=== PATIENT | male | born 1995 | race Caucasian/White ===

== ENCOUNTER 2016-07-31 14:20 | Emergency (ER) | payer SELFPAY ==
[~2016-07-31] VITALS: Ht 182.9 cm; Wt 79.5 kg
[2016-07-31] MEDS ORDERED: IBUP100T54 PO (14:22)
[2016-07-31 14:54] LABS: BASOPHILS % (AUTO) 0.3 % (0.0-2.0); EOSINOPHILS % (AUTO) 1.2 % (1.0-6.0); HEMATOCRIT 49.8 % (41-53); HEMOGLOBIN 16.2 g/dL (13.5-17.5); LYMPHOCYTES # (AUTO) 1.6 K/uL (1.0-4.8); LYMPHOCYTES % (AUTO) 21.9 % (22.0-44.0); MEAN CORPUSCULAR HEMOGLOBIN 30.9 pg (26.0-34.0); MEAN CORPUSCULAR HGB CONC 32.6 G/dL (31.0-37.0); MEAN CORPUSCULAR VOLUME 95 fL (80-100); MONOCYTES # (AUTO) 0.5 K/uL (0.1-1.0); MONOCYTES % (AUTO) 6.6 % (2.0-9.0); NEUTROPHILS # (AUTO) 5.2 K/uL (1.8-7.7); PLATELET COUNT (AUTO) 181 K/uL (150-450); RED BLOOD CELL COUNT(AUTO) 5.25 MIL/uL (4.50-5.90); RED CELL DISTRIBUTION WIDTH 13.9 % (11.5-14.5); WHITE BLOOD COUNT (AUTO) 7.5 K/uL (4.5-11.0)
[2016-07-31 15:05] LABS: APPEARANCE,URINE CLOUDY (CLEAR); GLUCOSE, URINE (UA) NEGATIVE (NEGATIVE); KETONES,URINE NEGATIVE (NEGATIVE); LEUKOCYTE ESTERASE ,URINE NEGATIVE (NEGATIVE); OCCULT BLOOD,URINE NEGATIVE (NEGATIVE); PROTEIN,URINE NEGATIVE (NEGATIVE)
[2016-07-31 15:07] LABS: ADD UA MICROSCOPIC NO
[2016-07-31 15:20] LABS: ANION GAP 9 mmol/L (8-16); CALCIUM, TOTAL 8.9 mg/dL (8.8-10.5); CARBON DIOXIDE 30 mmol/L (22-29); CHLORIDE 102 mmol/L (98-107); CREATININE 1.19 mg/dL (0.60-1.30); GLOMERULAR FILTR. RATE CALC > 60 mL/min (>60); POTASSIUM 3.8 mmol/L (3.5-5.1); SODIUM SERUM 141 mmol/L (136-145); UREA NITROGEN, BLOOD 13 mg/dL (7-18)
[2016-07-31 15:27] LABS: ALANINE AMINOTRANSFERASE 27 U/L (12-78); ALBUMIN 4.3 g/dL (3.4-5.0); ASPARTATE AMINOTRANSFERASE 11 U/L (15-37); BILIRUBIN,TOTAL 0.3 mg/dL (0.1-1.0); TOTAL PROTEIN, SERUM 7.5 g/dL (6.4-8.2)
[2016-07-31] MEDS ORDERED: KETOROLAC TROMETHAMINE 30 MG/ML VIAL IVP ONE (16:00)
[2016-07-31] MEDS ORDERED: SODIUM CHLORIDE 0.9% 1,000 ML IV ONE (16:00)
[2016-07-31 17:21] VITALS: BP 118/69
== END 2016-07-31 18:01 | disposition home or self-care (01) ==
LOC: EMS 14:22
DX: R55 Syncope and collapse (principal); F12.90 Cannabis use, unspecified, uncomplicated; F17.210 Nicotine dependence, cigarettes, uncomplicated
CPT/HCPCS: 36415; 70450; 80053; 80307; 81003; 85025; 93005; 96361; 96374; 99285; J1885; J7030

== ENCOUNTER 2017-12-04 14:28 | Inpatient (IN) | payer OTHER ==
[~2017-12-04] VITALS: Ht 167.6 cm; Wt 64.6 kg
[~2017-12-04 14:28] MED LIST: IBUP100T54 PO
[2017-12-04] MEDS ORDERED: ACET-2895 PO (14:41)
[2017-12-04 15:31] LABS: BASOPHILS % (AUTO) 0.8 % (0.0-2.0); EOSINOPHILS % (AUTO) 2.2 % (1.0-6.0); HEMATOCRIT 37.8 % (41-53); HEMOGLOBIN 12.2 g/dL (13.5-17.5); LYMPHOCYTES # (AUTO) 1.7 K/uL (1.0-4.8); LYMPHOCYTES % (AUTO) 32.1 % (22.0-44.0); MEAN CORPUSCULAR HEMOGLOBIN 26.2 pg (26.0-34.0); MEAN CORPUSCULAR HGB CONC 32.1 G/dL (31.0-37.0); MEAN CORPUSCULAR VOLUME 82 fL (80-100); MONOCYTES # (AUTO) 0.5 K/uL (0.1-1.0); MONOCYTES % (AUTO) 8.7 % (2.0-9.0); NEUTROPHILS # (AUTO) 3.1 K/uL (1.8-7.7); NEUTROPHILS % (AUTO) 56.2 % (40.0-70.0); PLATELET COUNT (AUTO) 343 K/uL (150-450); RED BLOOD CELL COUNT(AUTO) 4.64 MIL/uL (4.50-5.90); RED CELL DISTRIBUTION WIDTH 18.5 % (11.5-14.5)
[2017-12-04 15:45] LABS: ANION GAP 6 mmol/L (8-16); CALCIUM, TOTAL 8.7 mg/dL (8.8-10.5); CARBON DIOXIDE 30 mmol/L (22-29); CHLORIDE 101 mmol/L (98-107); CREATININE 1.02 mg/dL (0.60-1.30); GLOMERULAR FILTR. RATE CALC > 60 mL/min (>60); GLUCOSE,RANDOM 126 mg/dL (70-110); POTASSIUM 3.7 mmol/L (3.5-5.1); SODIUM SERUM 137 mmol/L (136-145); UREA NITROGEN, BLOOD 9 mg/dL (7-18)
[2017-12-04 15:51] LABS: ALANINE AMINOTRANSFERASE 26 U/L (12-78); ALBUMIN 3.2 g/dL (3.4-5.0); ALKALINE PHOSPHATASE 249 U/L (46-116); ASPARTATE AMINOTRANSFERASE 16 U/L (15-37); BILIRUBIN,TOTAL 0.2 mg/dL (0.1-1.0)
[2017-12-04 16:49] LABS: AMPHET/METH SCREEN,URINE NEGATIVE (NEGATIVE); BARBITURATE SCREEN, URINE NEGATIVE (NEGATIVE); BENZODIAZEPINES SCREEN,URINE NEGATIVE (NEGATIVE); CANNABINOID SCREEN,URINE POSITIVE (NEGATIVE); COCAINE SCREEN,URINE NEGATIVE (NEGATIVE); METHADONE SCREEN, URINE NEGATIVE (NEGATIVE); OPIATE SCREEN,URINE NEGATIVE (NEGATIVE)
[2017-12-04 16:50] LABS: PHENCYCLIDINE SCREEN,URINE NEGATIVE (NEGATIVE)
[2017-12-04] MEDS ORDERED: ONDANSETRON HCL 4 MG/2 ML VIAL IVP PRN ×2 (17:15→22:30)
[2017-12-04] MEDS ORDERED: 0.9% SODIUM CHLORIDE 10 ML SYRINGE IVP PRN (17:15)
[2017-12-04] MEDS ORDERED: ACETAMINOPHEN 325 MG TABLET PO PRN ×2 (17:15→22:30)
[2017-12-04 19:18] VITALS: BP 118/84
[2017-12-04] MEDS ORDERED: HYDROCODONE/ACETAMINOPHEN 5-325 MG TABLET PO PRN (22:30)
[2017-12-04] MEDS ORDERED: LORazepam 2 MG/ML VIAL IVP PRN (22:30)
[2017-12-04] MEDS ORDERED: BISACODYL 10 MG RECTAL RECTAL SUPPOSITORY PR PRN (22:30)
[2017-12-04] MEDS ORDERED: ZOLPIDEM TARTRATE 5 MG TABLET PO PRN (22:30)
[2017-12-04] MEDS ORDERED: MORPHINE SULFATE 2 MG/ML SYRINGE IVP PRN (22:30)
[2017-12-04] MEDS ORDERED: MAGNESIUM HYDROXIDE SUSPENSION 30 ML UDCUP PO PRN (22:30)
[2017-12-04 23:23] VITALS: BP 132/78
[2017-12-05] MEDS: HEPARIN SODIUM,PORCINE 5,000 UNITS/ML VIAL SQ SCH ×3 (00:09→16:46)
[2017-12-05 05:04] VITALS: BP 132/88
[2017-12-05 06:22] LABS: BASOPHILS % (AUTO) 0.4 % (0.0-2.0); EOSINOPHILS % (AUTO) 2.7 % (1.0-6.0); HEMATOCRIT 39.4 % (41-53); HEMOGLOBIN 12.6 g/dL (13.5-17.5); LYMPHOCYTES # (AUTO) 2.7 K/uL (1.0-4.8); LYMPHOCYTES % (AUTO) 30.9 % (22.0-44.0); MEAN CORPUSCULAR HEMOGLOBIN 26.1 pg (26.0-34.0); MEAN CORPUSCULAR VOLUME 82 fL (80-100); MONOCYTES # (AUTO) 0.6 K/uL (0.1-1.0); MONOCYTES % (AUTO) 6.4 % (2.0-9.0); NEUTROPHILS # (AUTO) 5.2 K/uL (1.8-7.7); NEUTROPHILS % (AUTO) 59.6 % (40.0-70.0); PLATELET COUNT (AUTO) 395 K/uL (150-450); RED BLOOD CELL COUNT(AUTO) 4.83 MIL/uL (4.50-5.90); RED CELL DISTRIBUTION WIDTH 18.5 % (11.5-14.5)
[2017-12-05 06:29] LABS: ALANINE AMINOTRANSFERASE 31 U/L (12-78); ALBUMIN 3.3 g/dL (3.4-5.0); ALKALINE PHOSPHATASE 247 U/L (46-116); ANION GAP 6 mmol/L (8-16); ASPARTATE AMINOTRANSFERASE 16 U/L (15-37); BILIRUBIN,TOTAL 0.2 mg/dL (0.1-1.0); CALCIUM, TOTAL 8.9 mg/dL (8.8-10.5); CARBON DIOXIDE 30 mmol/L (22-29); CHLORIDE 103 mmol/L (98-107); CREATININE 0.91 mg/dL (0.60-1.30); GLOMERULAR FILTR. RATE CALC > 60 mL/min (>60); GLUCOSE,RANDOM 98 mg/dL (70-110); SODIUM SERUM 139 mmol/L (136-145); TOTAL PROTEIN, SERUM 7.2 g/dL (6.4-8.2); UREA NITROGEN, BLOOD 9 mg/dL (7-18)
[2017-12-05] MEDS ORDERED: DOCUSATE SODIUM 100 MG CAPSULE PO SCH (09:00)
[2017-12-05] MEDS ORDERED: PANTOPRAZOLE SODIUM 40 MG DR TABLET PO SCH (09:00)
[2017-12-05 09:11] VITALS: BP 107/64
[2017-12-05 12:39] VITALS: BP 130/85
[2017-12-05 16:16] VITALS: BP 129/75
== END 2017-12-05 18:17 | disposition home or self-care (01) | DRG 52 ==
LOC: EMS 14:29 → 6N 17:33 → 4E 12-05 07:41
PROVIDERS: ADMIT Internal Medicine; ATTEND Internal Medicine
DX: G92 Toxic encephalopathy (principal); F12.10 Cannabis abuse, uncomplicated; H91.3 Deaf nonspeaking, not elsewhere classified; F17.210 Nicotine dependence, cigarettes, uncomplicated
CPT/HCPCS: 70450; 72125; 99285; G0480; J1644

== ENCOUNTER 2018-02-22 19:37 | Emergency (ER) | payer OTHER ==
[~2018-02-22] VITALS: Ht 175.3 cm; Wt 57.7 kg
[~2018-02-22 19:37] MED LIST changes: +ACET-2895 PO; -IBUP100T54 PO
[2018-02-22 21:10] LABS: APPEARANCE,URINE TURBID (CLEAR); GLUCOSE, URINE (UA) NEGATIVE (NEGATIVE); KETONES,URINE TRACE mg/dL (NEGATIVE); LEUKOCYTE ESTERASE ,URINE NEGATIVE (NEGATIVE); NITRATE,URINE NEGATIVE (NEGATIVE); OCCULT BLOOD,URINE NEGATIVE (NEGATIVE); PH,URINE 5.5 (5.0-8.0); PROTEIN,URINE POS 1+ (NEGATIVE); UROBILINOGEN,URINE 0.2 mg/dL (<=1.0)
[2018-02-22 21:11] LABS: BILIRUBIN,URINE PRELIM. POSITIVE (NEGATIVE)
[2018-02-22 21:18] LABS: BACTERIA,URINE None Seen /HPF (None Seen); WBC,URINE 0-2 /HPF (0-5)
[2018-02-22 21:19] LABS: HYALINE CASTS, URINE 0-2 /LPF (None Seen); MUCUS,URINE Few LPF (None Seen); SQUAMOUS EPITHELIAL CELL,UR Rare /LPF (None Seen)
[2018-02-22 23:12] VITALS: BP 136/77
== END 2018-02-22 23:12 | disposition home or self-care (01) ==
LOC: EMS 19:39
DX: N48.89 Other specified disorders of penis (principal); N50.89 Other specified disorders of the male genital organs; F17.210 Nicotine dependence, cigarettes, uncomplicated; F12.90 Cannabis use, unspecified, uncomplicated
CPT/HCPCS: 76870

== ENCOUNTER 2018-04-09 14:49 | Inpatient (IN) | payer MEDICAID, OTHER ==
[~2018-04-09] VITALS: Ht 172.7 cm; Wt 63.3 kg
[2018-04-09 15:18] LABS: BASOPHILS % (AUTO) 0.8 % (0.0-2.0); EOSINOPHILS % (AUTO) 1.9 % (1.0-6.0); HEMATOCRIT 42.5 % (41-53); HEMOGLOBIN 13.8 g/dL (13.5-17.5); LYMPHOCYTES # (AUTO) 1.7 K/uL (1.0-4.8); LYMPHOCYTES % (AUTO) 22.4 % (22.0-44.0); MEAN CORPUSCULAR HEMOGLOBIN 28.9 pg (26.0-34.0); MEAN CORPUSCULAR HGB CONC 32.5 G/dL (31.0-37.0); MEAN CORPUSCULAR VOLUME 89 fL (80-100); MONOCYTES # (AUTO) 0.5 K/uL (0.1-1.0); MONOCYTES % (AUTO) 7.3 % (2.0-9.0); NEUTROPHILS % (AUTO) 67.6 % (40.0-70.0); PLATELET COUNT (AUTO) 291 K/uL (150-450); RED BLOOD CELL COUNT(AUTO) 4.78 MIL/uL (4.50-5.90); RED CELL DISTRIBUTION WIDTH 17.8 % (11.5-14.5)
[2018-04-09 15:46] LABS: ALANINE AMINOTRANSFERASE 128 U/L (12-78); ALKALINE PHOSPHATASE 284 U/L (46-116); ANION GAP 4 mmol/L (8-16); ASPARTATE AMINOTRANSFERASE 71 U/L (15-37); BILIRUBIN,TOTAL 0.2 mg/dL (0.1-1.0); CALCIUM, TOTAL 8.8 mg/dL (8.8-10.5); CARBON DIOXIDE 30 mmol/L (22-29); CHLORIDE 104 mmol/L (98-107); CREATININE 0.95 mg/dL (0.60-1.30); GLOMERULAR FILTR. RATE CALC > 60 mL/min (>60); GLUCOSE,RANDOM 96 mg/dL (70-110); POTASSIUM 4.4 mmol/L (3.5-5.1); SODIUM SERUM 138 mmol/L (136-145); TOTAL PROTEIN, SERUM 7.1 g/dL (6.4-8.2); UREA NITROGEN, BLOOD 17 mg/dL (7-18)
[2018-04-09] MEDS ORDERED: LORazepam 1 MG TABLET PO ONE (17:15)
[2018-04-09] MEDS ORDERED: ZOLPIDEM TARTRATE 10 MG TABLET PO PRN (17:30)
[2018-04-09 22:59] VITALS: BP 139/82
[2018-04-10 00:35] VITALS: BP 115/69
[2018-04-10] MEDS ORDERED: LOPERAMIDE HCL 2 MG CAPSULE PO PRN (07:15)
[2018-04-10] MEDS ORDERED: PETROLATUM,WHITE 71 GM JELLY TP PRN (07:15)
[2018-04-10] MEDS ORDERED: IBUPROFEN 400 MG TABLET PO PRN (07:15)
[2018-04-10] MEDS ORDERED: GuaiFENesin/D-METHORPHAN [SUGAR-FREE] 200-20MG/10 ML SYRUP UDCUP PO PRN (07:15)
[2018-04-10] MEDS ORDERED: DOCUSATE SODIUM 100 MG CAPSULE PO PRN (07:15)
[2018-04-10] MEDS ORDERED: MAG HYDROX/AL HYDROX/SIMETH ES 30 ML SUSPENSION UDCUP PO PRN (07:15)
[2018-04-10] MEDS ORDERED: ONDANSETRON HCL 4 MG TABLET PO PRN (07:15)
[2018-04-10] MEDS ORDERED: NICOTINE 14 MG/24 HOUR PATCH TD PRN (07:15)
[2018-04-10] MEDS ORDERED: ACETAMINOPHEN 325 MG TABLET PO PRN (07:15)
[2018-04-10] MEDS ORDERED: ALBUTEROL SULFATE HFA 90 MCG/PUFF 8 GM INHALER IH PRN (07:15)
[2018-04-10] MEDS ORDERED: CloNIDine HCL 0.1 MG TABLET PO PRN (07:15)
[2018-04-10] MEDS ORDERED: MAGNESIUM HYDROXIDE SUSPENSION 30 ML UDCUP PO PRN (07:15)
[2018-04-10] MEDS: BACITRACIN 28.4 GM OINTMENT TP SCH ×2 (09:10→17:00)
[2018-04-10] MEDS: HALOPERIDOL 5 MG TABLET PO PRN (09:42)
[2018-04-10] MEDS: LORazepam 2 MG TABLET PO PRN (09:42)
[2018-04-10 09:47] LABS: FREE T4 (FREE THYROXINE) 0.78 ng/dL (0.76-1.46); THYROID STIMULATING HORMONE 1.18 uIU/mL (0.36-3.74)
[2018-04-10 16:33] VITALS: BP 137/91
[2018-04-11 04:33] VITALS: BP 124/87
[2018-04-11 08:42] VITALS: BP 109/71
[2018-04-11 08:50] LABS: BASOPHILS % (AUTO) 0.4 % (0.0-2.0); EOSINOPHILS % (AUTO) 0.7 % (1.0-6.0); HEMOGLOBIN 15.9 g/dL (13.5-17.5); LYMPHOCYTES # (AUTO) 1.8 K/uL (1.0-4.8); LYMPHOCYTES % (AUTO) 15.6 % (22.0-44.0); MEAN CORPUSCULAR HEMOGLOBIN 28.8 pg (26.0-34.0); MEAN CORPUSCULAR HGB CONC 32.3 G/dL (31.0-37.0); MEAN CORPUSCULAR VOLUME 89 fL (80-100); MONOCYTES # (AUTO) 0.5 K/uL (0.1-1.0); MONOCYTES % (AUTO) 4.7 % (2.0-9.0); NEUTROPHILS # (AUTO) 8.9 K/uL (1.8-7.7); NEUTROPHILS % (AUTO) 78.6 % (40.0-70.0); PLATELET COUNT (AUTO) 321 K/uL (150-450); RED BLOOD CELL COUNT(AUTO) 5.51 MIL/uL (4.50-5.90); RED CELL DISTRIBUTION WIDTH 17.4 % (11.5-14.5)
[2018-04-11 09:03] LABS: ALANINE AMINOTRANSFERASE 95 U/L (12-78); ALBUMIN 3.2 g/dL (3.4-5.0); ALKALINE PHOSPHATASE 297 U/L (46-116); ANION GAP 6 mmol/L (8-16); ASPARTATE AMINOTRANSFERASE 30 U/L (15-37); BILIRUBIN,TOTAL 0.3 mg/dL (0.1-1.0); CALCIUM, TOTAL 9.2 mg/dL (8.8-10.5); CARBON DIOXIDE 30 mmol/L (22-29); CHLORIDE 102 mmol/L (98-107); CREATININE 0.72 mg/dL (0.60-1.30); GLOMERULAR FILTR. RATE CALC > 60 mL/min (>60); GLUCOSE,RANDOM 96 mg/dL (70-110); HEMOGLOBIN A1C 5.5 % (4.5-6.2); POTASSIUM 4.2 mmol/L (3.5-5.1); SODIUM SERUM 138 mmol/L (136-145); TOTAL PROTEIN, SERUM 7.8 g/dL (6.4-8.2); UREA NITROGEN, BLOOD 11 mg/dL (7-18)
[2018-04-11] MEDS: BACITRACIN 28.4 GM OINTMENT TP SCH ×2 (09:14→17:15)
[2018-04-11] MEDS: HALOPERIDOL 5 MG TABLET PO PRN ×2 (09:51→17:15)
[2018-04-11] MEDS: LORazepam 2 MG TABLET PO PRN ×2 (09:51→17:14)
[2018-04-11 10:05] VITALS: BP 116/80
[2018-04-11 16:40] VITALS: BP 135/69
[2018-04-11] MEDS: RisperiDONE 0.5 MG TABLET PO SCH (17:15)
[2018-04-12 00:51] VITALS: BP 111/67
[2018-04-12 08:29] VITALS: BP 124/84
[2018-04-12] MEDS: LORazepam 2 MG TABLET PO PRN (08:35)
[2018-04-12] MEDS: RisperiDONE 0.5 MG TABLET PO SCH ×2 (08:35→17:06)
[2018-04-12] MEDS: BACITRACIN 28.4 GM OINTMENT TP SCH ×2 (08:37→17:08)
[2018-04-12] MEDS ORDERED: RISP.5 PO (12:31)
[2018-04-12 16:09] VITALS: BP 126/85
== END 2018-04-12 18:20 | disposition home or self-care (01) | DRG 750 ==
LOC: EMS 14:50 → B2S 21:43
PROVIDERS: ADMIT Psychiatry & Neurology Psychiatry; ATTEND Psychiatry & Neurology Psychiatry
DX: F20.9 Schizophrenia, unspecified (principal); R45.851 Suicidal ideations; R74.0 Nonspecific elevation of levels of transaminase and lactic acid dehydrogenase [LDH]; H91.3 Deaf nonspeaking, not elsewhere classified; F17.210 Nicotine dependence, cigarettes, uncomplicated; F12.90 Cannabis use, unspecified, uncomplicated; F15.90 Other stimulant use, unspecified, uncomplicated; Z71.6 Tobacco abuse counseling; Z79.899 Other long term (current) drug therapy
CPT/HCPCS: 83036; 84439; 84443; G0480

== ENCOUNTER 2018-10-18 15:53 | Emergency (ER) | payer MEDICAID, OTHER ==
[~2018-10-18] VITALS: Ht 177.8 cm; Wt 68.2 kg
[~2018-10-18 15:53] MED LIST changes: -ACET-2895 PO; +RISP.5 PO
[2018-10-18 18:25] VITALS: BP 116/63
== END 2018-10-18 18:33 | disposition home or self-care (01) ==
LOC: EMS 15:54
DX: Z63.8 Other specified problems related to primary support group (principal); F17.210 Nicotine dependence, cigarettes, uncomplicated; F12.90 Cannabis use, unspecified, uncomplicated; F19.90 Other psychoactive substance use, unspecified, uncomplicated

== ENCOUNTER 2018-12-07 00:56 | Inpatient (IN) | payer MEDICAID, OTHER ==
[~2018-12-07] VITALS: Ht 175.3 cm; Wt 65.0 kg
[2018-12-07 02:45] LABS: BASOPHILS % (AUTO) 0.6 % (0.0-2.0); EOSINOPHILS % (AUTO) 0.7 % (1.0-6.0); HEMATOCRIT 42.9 % (41-53); HEMOGLOBIN 14.2 g/dL (13.5-17.5); LYMPHOCYTES # (AUTO) 1.8 K/uL (1.0-4.8); LYMPHOCYTES % (AUTO) 23.6 % (22.0-44.0); MEAN CORPUSCULAR HEMOGLOBIN 31.3 pg (26.0-34.0); MEAN CORPUSCULAR HGB CONC 33.2 G/dL (31.0-37.0); MEAN CORPUSCULAR VOLUME 94 fL (80-100); MONOCYTES # (AUTO) 0.6 K/uL (0.1-1.0); MONOCYTES % (AUTO) 7.8 % (2.0-9.0); NEUTROPHILS # (AUTO) 5.2 K/uL (1.8-7.7); NEUTROPHILS % (AUTO) 67.3 % (40.0-70.0); PLATELET COUNT (AUTO) 263 K/uL (150-450); RED BLOOD CELL COUNT(AUTO) 4.55 MIL/uL (4.50-5.90); RED CELL DISTRIBUTION WIDTH 14.6 % (11.5-14.5)
[2018-12-07 02:55] LABS: ANION GAP 10 mmol/L (8-16); CALCIUM, TOTAL 9.6 mg/dL (8.8-10.5); CARBON DIOXIDE 26 mmol/L (22-29); CHLORIDE 104 mmol/L (98-107); GLOMERULAR FILTR. RATE CALC > 60 mL/min (>60); GLUCOSE,RANDOM 93 mg/dL (70-110); SODIUM SERUM 140 mmol/L (136-145); UREA NITROGEN, BLOOD 8 mg/dL (7-18)
[2018-12-07 03:01] LABS: ALANINE AMINOTRANSFERASE 50 U/L (12-78); ALBUMIN 4.2 g/dL (3.4-5.0); ALKALINE PHOSPHATASE 149 U/L (46-116); ASPARTATE AMINOTRANSFERASE 26 U/L (15-37); BILIRUBIN,TOTAL 0.4 mg/dL (0.1-1.0); TOTAL PROTEIN, SERUM 7.5 g/dL (6.4-8.2)
[2018-12-07] MEDS ORDERED: ZOLPIDEM TARTRATE 10 MG TABLET PO PRN (06:00)
[2018-12-07] MEDS ORDERED: INFLUENZA VIRUS VACCINE QVS 2019-20 (3YR+)/PF 60 MCG/0.5 ML SYRINGE IM ONE (12:30)
[2018-12-07 14:23] VITALS: BP 137/78
[2018-12-07 16:10] VITALS: BP 138/94
[2018-12-07] MEDS ORDERED: PNEUMOCOCCAL VACCINE POLYVALENT 0.5 ML VIAL [PPSV23] IM ONE (16:15)
[2018-12-07] MEDS: LORazepam 2 MG TABLET PO PRN (16:39)
[2018-12-08 07:31] VITALS: BP 126/82
[2018-12-08 08:19] VITALS: BP 126/71
[2018-12-08] MEDS: NICOTINE 21 MG/24 HOUR PATCH TD SCH (08:40)
[2018-12-08] MEDS ORDERED: ALBUTEROL SULFATE HFA 90 MCG/PUFF 8 GM INHALER IH PRN (09:15)
[2018-12-08] MEDS ORDERED: OMEPRAZOLE 20 MG CAPSULE PO PRN (09:15)
[2018-12-08] MEDS ORDERED: PETROLATUM,WHITE 28 GM JELLY TP PRN (09:15)
[2018-12-08] MEDS ORDERED: LOPERAMIDE HCL 2 MG CAPSULE PO PRN (09:15)
[2018-12-08] MEDS ORDERED: MAG HYDROX/AL HYDROX/SIMETH ES 30 ML SUSPENSION UDCUP PO PRN (09:15)
[2018-12-08] MEDS ORDERED: ONDANSETRON HCL 4 MG TABLET PO PRN (09:15)
[2018-12-08] MEDS ORDERED: CloNIDine HCL 0.1 MG TABLET PO PRN (09:15)
[2018-12-08] MEDS ORDERED: BENZOCAINE/MENTHOL LOZENGE MM PRN (09:15)
[2018-12-08] MEDS ORDERED: MAGNESIUM HYDROXIDE SUSPENSION 30 ML UDCUP PO PRN (09:15)
[2018-12-08] MEDS ORDERED: BACITRACIN 28.4 GM OINTMENT TP PRN (09:15)
[2018-12-08] MEDS ORDERED: IBUPROFEN 600 MG TABLET PO PRN (09:15)
[2018-12-08] MEDS ORDERED: DOCUSATE SODIUM 100 MG CAPSULE PO PRN (09:15)
[2018-12-08] MEDS ORDERED: ACETAMINOPHEN 325 MG TABLET PO PRN (09:15)
[2018-12-08] MEDS: LORazepam 2 MG TABLET PO PRN (10:23)
[2018-12-09 06:30] VITALS: BP 120/81
[2018-12-09 07:14] VITALS: BP 124/78
[2018-12-09 08:07] LABS: CHOL/HDL RATIO 3.3 (4.2-7.3)
[2018-12-09 08:31] VITALS: BP 108/63
[2018-12-09] MEDS: NICOTINE 21 MG/24 HOUR PATCH TD SCH (08:43)
[2018-12-09] MEDS: LORazepam 2 MG TABLET PO PRN (09:51)
[2018-12-09 16:00] VITALS: BP 133/83
[2018-12-09] MEDS: RisperiDONE 0.5 MG TABLET PO SCH (16:19)
[2018-12-10 00:02] VITALS: BP 104/63
[2018-12-10] MEDS: RisperiDONE 0.5 MG TABLET PO SCH ×2 (08:25→16:27)
[2018-12-10] MEDS: NICOTINE 21 MG/24 HOUR PATCH TD SCH (08:26)
[2018-12-10] MEDS: LORazepam 2 MG TABLET PO PRN (08:26)
[2018-12-10 08:29] VITALS: BP 140/75
[2018-12-10 16:00] VITALS: BP 112/93
[2018-12-11 01:30] VITALS: BP 122/83
[2018-12-11 08:02] LABS: APPEARANCE,URINE CLEAR (CLEAR); BILIRUBIN,URINE NEGATIVE (NEGATIVE); GLUCOSE, URINE (UA) NEGATIVE (NEGATIVE); KETONES,URINE NEGATIVE (NEGATIVE); LEUKOCYTE ESTERASE ,URINE NEGATIVE (NEGATIVE); NITRATE,URINE NEGATIVE (NEGATIVE); OCCULT BLOOD,URINE NEGATIVE (NEGATIVE); PROTEIN,URINE NEGATIVE (NEGATIVE); UROBILINOGEN,URINE 0.2 mg/dL (<=1.0)
[2018-12-11 08:10] LABS: AMPHET/METH SCREEN,URINE NEGATIVE (NEGATIVE); BARBITURATE SCREEN, URINE NEGATIVE (NEGATIVE); BENZODIAZEPINES SCREEN,URINE NEGATIVE (NEGATIVE); CANNABINOID SCREEN,URINE POSITIVE (NEGATIVE); COCAINE SCREEN,URINE NEGATIVE (NEGATIVE); METHADONE SCREEN, URINE NEGATIVE (NEGATIVE); OPIATE SCREEN,URINE NEGATIVE (NEGATIVE)
[2018-12-11 08:11] LABS: PHENCYCLIDINE SCREEN,URINE NEGATIVE (NEGATIVE)
[2018-12-11 08:27] VITALS: BP 134/80
[2018-12-11] MEDS: NICOTINE 21 MG/24 HOUR PATCH TD SCH (09:22)
[2018-12-11] MEDS: RisperiDONE 0.5 MG TABLET PO SCH ×2 (09:22→19:30)
[2018-12-11] MEDS ORDERED: LORazepam 2 MG/ML VIAL IM ONE (15:30)
[2018-12-11] MEDS ORDERED: HALOPERIDOL LACTATE 5 MG/ML VIAL IM ONE (15:30)
[2018-12-11] MEDS ORDERED: DiphenhydrAMINE HCL 50 MG/ML VIAL IM ONE (15:30)
[2018-12-11 16:11] VITALS: BP 123/71
[2018-12-12] MEDS: RisperiDONE 0.5 MG TABLET PO SCH ×2 (09:49→17:00)
[2018-12-12] MEDS: NICOTINE 21 MG/24 HOUR PATCH TD SCH (10:05)
[2018-12-12] MEDS: HALOPERIDOL 5 MG TABLET PO PRN ×2 (10:52→16:38)
[2018-12-12 11:09] VITALS: BP 108/65
[2018-12-12 16:13] VITALS: BP 113/73
[2018-12-12] MEDS: LORazepam 2 MG TABLET PO PRN (16:38)
[2018-12-13 06:55] VITALS: BP 116/74
[2018-12-13 08:14] VITALS: BP 134/81
[2018-12-13] MEDS: NICOTINE 21 MG/24 HOUR PATCH TD SCH (09:12)
[2018-12-13] MEDS: RisperiDONE 0.5 MG TABLET PO SCH (09:12)
== END 2018-12-13 13:30 | disposition home or self-care (01) | DRG 750 ==
LOC: EMS 00:57 → B2S 09:36 → B3A 12-11 17:30
PROVIDERS: ADMIT Psychiatry & Neurology Psychiatry; ATTEND Psychiatry & Neurology Psychiatry
DX: F20.0 Paranoid schizophrenia (principal); F12.10 Cannabis abuse, uncomplicated; F15.10 Other stimulant abuse, uncomplicated; F17.210 Nicotine dependence, cigarettes, uncomplicated; G47.00 Insomnia, unspecified; K59.00 Constipation, unspecified; F41.9 Anxiety disorder, unspecified; Z23 Encounter for immunization; Z79.899 Other long term (current) drug therapy; Z71.6 Tobacco abuse counseling; Z71.51 Drug abuse counseling and surveillance of drug abuser
CPT/HCPCS: 80307; 90686; G0480; J1200; J1630; J2060

== ENCOUNTER 2019-09-13 17:58 | Inpatient (IN) | payer MEDICAID, OTHER ==
[~2019-09-13] VITALS: Ht 177.8 cm; Wt 56.0 kg
[~2019-09-13 17:58] MED LIST changes: -RISP.5 PO; +RISP0.5T20 PO
[2019-09-13 19:04] LABS: BASOPHILS % (AUTO) 1.1 % (0.0-2.0); EOSINOPHILS % (AUTO) 0.7 % (1.0-6.0); HEMATOCRIT 42.7 % (41-53); HEMOGLOBIN 14.5 g/dL (13.5-17.5); LYMPHOCYTES # (AUTO) 2.3 K/uL (1.0-4.8); MEAN CORPUSCULAR HEMOGLOBIN 31.1 pg (26.0-34.0); MEAN CORPUSCULAR HGB CONC 33.9 G/dL (31.0-37.0); MEAN CORPUSCULAR VOLUME 92 fL (80-100); MONOCYTES # (AUTO) 0.8 K/uL (0.1-1.0); MONOCYTES % (AUTO) 12.4 % (2.0-9.0); NEUTROPHILS # (AUTO) 3.5 K/uL (1.8-7.7); NEUTROPHILS % (AUTO) 51.8 % (40.0-70.0); PLATELET COUNT (AUTO) 338 K/uL (150-450); RED BLOOD CELL COUNT(AUTO) 4.66 MIL/uL (4.50-5.90); RED CELL DISTRIBUTION WIDTH 13.9 % (11.5-14.5)
[2019-09-13 19:18] LABS: ANION GAP 16 mmol/L (8-16); CALCIUM, TOTAL 9.5 mg/dL (8.8-10.5); CARBON DIOXIDE 21 mmol/L (22-29); CHLORIDE 101 mmol/L (98-107); CREATININE 1.45 mg/dL (0.60-1.30); GLOMERULAR FILTR. RATE CALC 59 mL/min (>60); GLUCOSE,RANDOM 94 mg/dL (70-110); POTASSIUM 3.3 mmol/L (3.5-5.1); SODIUM SERUM 138 mmol/L (136-145); UREA NITROGEN, BLOOD 42 mg/dL (7-18)
[2019-09-13 19:24] LABS: ALANINE AMINOTRANSFERASE 73 U/L (12-78); ALBUMIN 4.7 g/dL (3.4-5.0); ALKALINE PHOSPHATASE 138 U/L (46-116); ASPARTATE AMINOTRANSFERASE 45 U/L (15-37); BILIRUBIN,TOTAL 0.7 mg/dL (0.1-1.0); TOTAL PROTEIN, SERUM 8.4 g/dL (6.4-8.2)
[2019-09-13] MEDS ORDERED: SODIUM CHLORIDE 0.9% 1,000 ML IV ONE (19:45)
[2019-09-13] MEDS ORDERED: LORazepam 2 MG/ML VIAL IM ONE (19:45)
[2019-09-13] MEDS ORDERED: POTASSIUM CHLORIDE 20 MEQ ER TABLET PO ONE (19:45)
[2019-09-13] MEDS ORDERED: ZOLPIDEM TARTRATE 10 MG TABLET PO PRN (21:30)
[2019-09-13] MEDS ORDERED: HALOPERIDOL 5 MG TABLET PO PRN (21:30)
[2019-09-13] MEDS ORDERED: LORazepam 2 MG TABLET PO PRN (21:30)
[2019-09-14 01:02] VITALS: BP 109/68
[2019-09-14] MEDS ORDERED: ACETAMINOPHEN 325 MG TABLET PO PRN (07:00)
[2019-09-14] MEDS ORDERED: PETROLATUM,WHITE 28 GM JELLY TP PRN (07:00)
[2019-09-14] MEDS ORDERED: ALBUTEROL SULFATE HFA 90 MCG/PUFF 8 GM INHALER IH PRN (07:00)
[2019-09-14] MEDS ORDERED: CloNIDine HCL 0.1 MG TABLET PO PRN (07:00)
[2019-09-14] MEDS ORDERED: NICOTINE 14 MG/24 HOUR PATCH TD PRN (07:00)
[2019-09-14] MEDS ORDERED: IBUPROFEN 400 MG TABLET PO PRN (07:00)
[2019-09-14] MEDS ORDERED: MAG HYDROX/AL HYDROX/SIMETH ES 30 ML SUSPENSION UDCUP PO PRN (07:00)
[2019-09-14] MEDS ORDERED: LOPERAMIDE HCL 2 MG CAPSULE PO PRN (07:00)
[2019-09-14] MEDS ORDERED: GuaiFENesin/D-METHORPHAN [SUGAR-FREE] 200-20MG/10 ML SYRUP UDCUP PO PRN (07:00)
[2019-09-14] MEDS ORDERED: DOCUSATE SODIUM 100 MG CAPSULE PO PRN (07:00)
[2019-09-14] MEDS ORDERED: ONDANSETRON HCL 4 MG TABLET PO PRN (07:00)
[2019-09-14] MEDS ORDERED: MAGNESIUM HYDROXIDE SUSPENSION 30 ML UDCUP PO PRN (07:00)
[2019-09-14 08:05] LABS: HEMOGLOBIN A1C 5.2 % (3.8-5.6)
[2019-09-14 08:32] LABS: CHOL/HDL RATIO 2.9 (4.2-7.3); FREE T4 (FREE THYROXINE) 1.03 ng/dL (0.76-1.46); POTASSIUM 3.5 mmol/L (3.5-5.1); THYROID STIMULATING HORMONE 2.16 uIU/mL (0.36-3.74)
[2019-09-14] MEDS: RisperiDONE 0.5 MG TABLET PO SCH (16:35)
[2019-09-14 17:20] VITALS: BP 106/88
[2019-09-15 05:47] VITALS: BP 110/68
[2019-09-15] MEDS: RisperiDONE 0.5 MG TABLET PO SCH ×2 (08:57→17:01)
[2019-09-15 16:14] VITALS: BP 111/64
[2019-09-16 00:41] VITALS: BP 110/65
[2019-09-16 08:44] VITALS: BP 114/67
[2019-09-16] MEDS: RisperiDONE 0.5 MG TABLET PO SCH (08:48)
[2019-09-16] MEDS ORDERED: FOLIC ACID 1 MG TABLET PO SCH (09:00)
[2019-09-16] MEDS ORDERED: MULTIVITAMINS WITH MINERALS, THERAPEUTIC TABLET PO SCH (09:00)
[2019-09-16] MEDS ORDERED: THIAMINE 100 MG TABLET PO SCH (09:00)
[2019-09-16] MEDS ORDERED: RISP0.5T61 PO (13:32)
== END 2019-09-16 15:00 | disposition home or self-care (01) | DRG 885 ==
LOC: EMS 18:02 → B3A 22:08
PROVIDERS: ADMIT Psychiatry & Neurology Psychiatry; ATTEND Psychiatry & Neurology Psychiatry
DX: F20.9 Schizophrenia, unspecified (principal); N17.9 Acute kidney failure, unspecified; R45.851 Suicidal ideations; E87.6 Hypokalemia; R74.0 Nonspecific elevation of levels of transaminase and lactic acid dehydrogenase [LDH]; F10.10 Alcohol abuse, uncomplicated; G40.909 Epilepsy, unspecified, not intractable, without status epilepticus; Z59.0 Homelessness; Z87.891 Personal history of nicotine dependence
CPT/HCPCS: 83036; 84132; 84439; 84443; G0480; J2060; J7030

== ENCOUNTER 2019-10-04 09:56 | Emergency (ER) | payer MEDICAID, OTHER ==
[2019-10-04 11:43] LABS: BASOPHILS % (AUTO) 1.2 % (0.0-2.0); EOSINOPHILS % (AUTO) 0.4 % (1.0-6.0); HEMATOCRIT 42.4 % (41-53); HEMOGLOBIN 14.3 g/dL (13.5-17.5); LYMPHOCYTES # (AUTO) 1.9 K/uL (1.0-4.8); LYMPHOCYTES % (AUTO) 21.6 % (22.0-44.0); MEAN CORPUSCULAR HEMOGLOBIN 31.6 pg (26.0-34.0); MEAN CORPUSCULAR HGB CONC 33.7 G/dL (31.0-37.0); MEAN CORPUSCULAR VOLUME 94 fL (80-100); MONOCYTES # (AUTO) 0.8 K/uL (0.1-1.0); MONOCYTES % (AUTO) 9.3 % (2.0-9.0); NEUTROPHILS # (AUTO) 5.8 K/uL (1.8-7.7); NEUTROPHILS % (AUTO) 67.5 % (40.0-70.0); PLATELET COUNT (AUTO) 291 K/uL (150-450); RED BLOOD CELL COUNT(AUTO) 4.52 MIL/uL (4.50-5.90); RED CELL DISTRIBUTION WIDTH 14.2 % (11.5-14.5)
[2019-10-04 12:13] LABS: ANION GAP 9 mmol/L (8-16); CALCIUM, TOTAL 9.7 mg/dL (8.8-10.5); CARBON DIOXIDE 31 mmol/L (22-29); CHLORIDE 108 mmol/L (98-107); CREATININE 1.02 mg/dL (0.60-1.30); GLOMERULAR FILTR. RATE CALC > 60 mL/min (>60); GLUCOSE,RANDOM 109 mg/dL (70-110); POTASSIUM 4.3 mmol/L (3.5-5.1); SODIUM SERUM 148 mmol/L (136-145); UREA NITROGEN, BLOOD 26 mg/dL (7-18)
[2019-10-04 12:18] LABS: ALANINE AMINOTRANSFERASE 85 U/L (12-78); ALBUMIN 4.5 g/dL (3.4-5.0); ALKALINE PHOSPHATASE 121 U/L (46-116); ASPARTATE AMINOTRANSFERASE 43 U/L (15-37); BILIRUBIN,TOTAL 0.4 mg/dL (0.1-1.0); TOTAL PROTEIN, SERUM 8.3 g/dL (6.4-8.2)
== END 2019-10-04 12:00 | disposition left against medical advice (07) ==
LOC: EMS 09:58
DX: R45.851 Suicidal ideations (principal); Z53.21 Procedure and treatment not carried out due to patient leaving prior to being seen by health care provider
CPT/HCPCS: 36415; 80053; 85025; G0480

== ENCOUNTER 2019-10-18 14:07 | Inpatient (IN) | payer MEDICAID, OTHER ==
[~2019-10-18] VITALS: Ht 172.7 cm; Wt 61.7 kg
[2019-10-18 15:39] LABS: AMPHET/METH SCREEN,URINE POSITIVE (NEGATIVE); BARBITURATE SCREEN, URINE NEGATIVE (NEGATIVE); BENZODIAZEPINES SCREEN,URINE NEGATIVE (NEGATIVE); CANNABINOID SCREEN,URINE POSITIVE (NEGATIVE); COCAINE SCREEN,URINE NEGATIVE (NEGATIVE); METHADONE SCREEN, URINE NEGATIVE (NEGATIVE); OPIATE SCREEN,URINE NEGATIVE (NEGATIVE)
[2019-10-18 15:40] LABS: PHENCYCLIDINE SCREEN,URINE NEGATIVE (NEGATIVE)
[2019-10-18 15:54] LABS: BASOPHILS % (AUTO) 1.2 % (0.0-2.0); EOSINOPHILS % (AUTO) 3.7 % (1.0-6.0); HEMATOCRIT 41.8 % (41-53); HEMOGLOBIN 14.5 g/dL (13.5-17.5); LYMPHOCYTES % (AUTO) 40.8 % (22.0-44.0); MEAN CORPUSCULAR HEMOGLOBIN 32.3 pg (26.0-34.0); MEAN CORPUSCULAR HGB CONC 34.6 G/dL (31.0-37.0); MEAN CORPUSCULAR VOLUME 93 fL (80-100); MONOCYTES # (AUTO) 0.7 K/uL (0.1-1.0); MONOCYTES % (AUTO) 13.2 % (2.0-9.0); NEUTROPHILS # (AUTO) 2.1 K/uL (1.8-7.7); NEUTROPHILS % (AUTO) 41.1 % (40.0-70.0); PLATELET COUNT (AUTO) 263 K/uL (150-450); RED BLOOD CELL COUNT(AUTO) 4.48 MIL/uL (4.50-5.90); RED CELL DISTRIBUTION WIDTH 13.9 % (11.5-14.5)
[2019-10-18 16:04] LABS: ANION GAP 5 mmol/L (8-16); CARBON DIOXIDE 29 mmol/L (22-29); CHLORIDE 101 mmol/L (98-107); CREATININE 1.31 mg/dL (0.60-1.30); GLOMERULAR FILTR. RATE CALC > 60 mL/min (>60); GLUCOSE,RANDOM 121 mg/dL (70-110); POTASSIUM 3.3 mmol/L (3.5-5.1); SODIUM SERUM 135 mmol/L (136-145); UREA NITROGEN, BLOOD 22 mg/dL (7-18)
[2019-10-18 16:09] LABS: ALANINE AMINOTRANSFERASE 58 U/L (12-78); ALKALINE PHOSPHATASE 105 U/L (46-116); ASPARTATE AMINOTRANSFERASE 42 U/L (15-37); BILIRUBIN,TOTAL 0.4 mg/dL (0.1-1.0); TOTAL PROTEIN, SERUM 7.4 g/dL (6.4-8.2)
[2019-10-18] MEDS ORDERED: POTASSIUM CHLORIDE 20 MEQ ER TABLET PO ONE (16:30)
[2019-10-18] MEDS ORDERED: ZOLPIDEM TARTRATE 10 MG TABLET PO PRN (18:00)
[2019-10-18] MEDS ORDERED: HALOPERIDOL 5 MG TABLET PO PRN (18:00)
[2019-10-18] MEDS: LORazepam 2 MG TABLET PO PRN (20:27)
[2019-10-18] MEDS ORDERED: ACETAMINOPHEN 325 MG TABLET PO ONE (20:30)
[2019-10-18 22:26] VITALS: BP 107/58
[2019-10-19 06:24] VITALS: BP 102/66
[2019-10-19] MEDS ORDERED: CloNIDine HCL 0.1 MG TABLET PO PRN (07:00)
[2019-10-19] MEDS ORDERED: PETROLATUM,WHITE 28 GM JELLY TP PRN (07:00)
[2019-10-19] MEDS ORDERED: IBUPROFEN 600 MG TABLET PO PRN (07:00)
[2019-10-19] MEDS ORDERED: ACETAMINOPHEN 325 MG TABLET PO PRN (07:00)
[2019-10-19] MEDS ORDERED: DOCUSATE SODIUM 100 MG CAPSULE PO PRN (07:00)
[2019-10-19] MEDS ORDERED: LOPERAMIDE HCL 2 MG CAPSULE PO PRN (07:00)
[2019-10-19] MEDS ORDERED: ONDANSETRON HCL 4 MG TABLET PO PRN (07:00)
[2019-10-19] MEDS ORDERED: OMEPRAZOLE 20 MG CAPSULE PO PRN (07:00)
[2019-10-19] MEDS ORDERED: BENZOCAINE/MENTHOL LOZENGE MM PRN (07:00)
[2019-10-19] MEDS ORDERED: MAG HYDROX/AL HYDROX/SIMETH ES 30 ML SUSPENSION UDCUP PO PRN (07:00)
[2019-10-19] MEDS ORDERED: MAGNESIUM HYDROXIDE SUSPENSION 30 ML UDCUP PO PRN (07:00)
[2019-10-19] MEDS ORDERED: ALBUTEROL SULFATE HFA 90 MCG/PUFF 8 GM INHALER IH PRN (07:00)
[2019-10-19] MEDS ORDERED: BACITRACIN 28.4 GM OINTMENT TP PRN (07:00)
[2019-10-19] MEDS: NICOTINE 14 MG/24 HOUR PATCH TD SCH (08:31)
[2019-10-19 08:45] LABS: ANION GAP 4 mmol/L (8-16); CALCIUM, TOTAL 8.8 mg/dL (8.8-10.5); CARBON DIOXIDE 31 mmol/L (22-29); CHLORIDE 104 mmol/L (98-107); CHOL/HDL RATIO 2.2 (4.2-7.3); CHOLESTEROL 148 mg/dL (131-200); CREATININE 1.09 mg/dL (0.60-1.30); GLOMERULAR FILTR. RATE CALC > 60 mL/min (>60); GLUCOSE,RANDOM 129 mg/dL (70-110); HDL CHOLESTEROL 67 mg/dL (40-60); LDL CHOL (CALC.) 57 mg/dL (0-130); POTASSIUM 3.9 mmol/L (3.5-5.1); SODIUM SERUM 139 mmol/L (136-145); TRIGLYCERIDES 119 mg/dL (15-150); UREA NITROGEN, BLOOD 18 mg/dL (7-18)
[2019-10-19] MEDS: LORazepam 2 MG TABLET PO PRN (11:01)
[2019-10-19] MEDS: RisperiDONE 1 MG TABLET PO SCH ×2 (14:13→16:28)
[2019-10-19 16:11] VITALS: BP 122/61
[2019-10-20 06:14] VITALS: BP 120/71
[2019-10-20] MEDS: RisperiDONE 1 MG TABLET PO SCH ×2 (08:13→16:06)
[2019-10-20] MEDS: NICOTINE 14 MG/24 HOUR PATCH TD SCH (08:14)
[2019-10-20 08:23] VITALS: BP 122/76
[2019-10-20] MEDS: LORazepam 2 MG TABLET PO PRN (16:07)
[2019-10-20 16:15] VITALS: BP 126/66
[2019-10-21 08:06] VITALS: BP 125/82
[2019-10-21] MEDS: RisperiDONE 1 MG TABLET PO SCH ×2 (09:08→16:32)
[2019-10-21] MEDS: NICOTINE 14 MG/24 HOUR PATCH TD SCH (09:35)
[2019-10-21] MEDS ORDERED: RISP1TAB89 PO (10:34)
[2019-10-21 16:15] VITALS: BP 120/74
== END 2019-10-22 07:30 | disposition home or self-care (01) | DRG 885 ==
LOC: EMS 14:08 → B3A 17:56 → UNDOADMIN 18:49 → B3A 18:49
PROVIDERS: ADMIT Psychiatry & Neurology Psychiatry; ATTEND Psychiatry & Neurology Psychiatry
DX: F33.2 Major depressive disorder, recurrent severe without psychotic features (principal); N17.9 Acute kidney failure, unspecified; R45.851 Suicidal ideations; F15.10 Other stimulant abuse, uncomplicated; F20.9 Schizophrenia, unspecified; H91.3 Deaf nonspeaking, not elsewhere classified; F17.210 Nicotine dependence, cigarettes, uncomplicated; G40.909 Epilepsy, unspecified, not intractable, without status epilepticus; R74.8 Abnormal levels of other serum enzymes; G47.00 Insomnia, unspecified; K59.00 Constipation, unspecified; F41.9 Anxiety disorder, unspecified; F10.10 Alcohol abuse, uncomplicated; F12.10 Cannabis abuse, uncomplicated; F14.90 Cocaine use, unspecified, uncomplicated; Z91.5 Personal history of self-harm; Z79.899 Other long term (current) drug therapy; Z71.51 Drug abuse counseling and surveillance of drug abuser; Z71.6 Tobacco abuse counseling
CPT/HCPCS: G0480

== ENCOUNTER 2019-11-08 07:24 | Inpatient (IN) | payer MEDICAID, OTHER ==
[~2019-11-08] VITALS: Ht 167.6 cm; Wt 59.0 kg
[~2019-11-08 07:24] MED LIST changes: -RISP0.5T20 PO; +RISP1TAB89 PO
[2019-11-08 07:51] LABS: EOSINOPHILS % (AUTO) 1.4 % (1.0-6.0); HEMATOCRIT 40.6 % (41-53); HEMOGLOBIN 13.6 g/dL (13.5-17.5); LYMPHOCYTES # (AUTO) 1.3 K/uL (1.0-4.8); MEAN CORPUSCULAR HEMOGLOBIN 31.5 pg (26.0-34.0); MEAN CORPUSCULAR HGB CONC 33.5 G/dL (31.0-37.0); MEAN CORPUSCULAR VOLUME 94 fL (80-100); MONOCYTES # (AUTO) 0.5 K/uL (0.1-1.0); MONOCYTES % (AUTO) 9.4 % (2.0-9.0); NEUTROPHILS % (AUTO) 61.2 % (40.0-70.0); PLATELET COUNT (AUTO) 247 K/uL (150-450); RED BLOOD CELL COUNT(AUTO) 4.32 MIL/uL (4.50-5.90); RED CELL DISTRIBUTION WIDTH 13.9 % (11.5-14.5)
[2019-11-08 08:00] LABS: ANION GAP 3 mmol/L (8-16); CALCIUM, TOTAL 8.7 mg/dL (8.8-10.5); CARBON DIOXIDE 30 mmol/L (22-29); CHLORIDE 106 mmol/L (98-107); CREATININE 1.19 mg/dL (0.60-1.30); GLOMERULAR FILTR. RATE CALC > 60 mL/min (>60); GLUCOSE,RANDOM 119 mg/dL (70-110); POTASSIUM 3.5 mmol/L (3.5-5.1); SODIUM SERUM 139 mmol/L (136-145); UREA NITROGEN, BLOOD 11 mg/dL (7-18)
[2019-11-08 08:06] LABS: ALANINE AMINOTRANSFERASE 80 U/L (12-78); ALBUMIN 3.8 g/dL (3.4-5.0); ALKALINE PHOSPHATASE 98 U/L (46-116); ASPARTATE AMINOTRANSFERASE 49 U/L (15-37); BILIRUBIN,TOTAL 0.6 mg/dL (0.1-1.0); TOTAL PROTEIN, SERUM 6.8 g/dL (6.4-8.2)
[2019-11-08] MEDS ORDERED: LORazepam 2 MG/ML VIAL ONE (08:13)
[2019-11-08] MEDS ORDERED: HALOPERIDOL LACTATE 5 MG/ML VIAL ONE (08:13)
[2019-11-08] MEDS ORDERED: DiphenhydrAMINE HCL 50 MG/ML VIAL ONE (08:13)
[2019-11-08] MEDS ORDERED: HALOPERIDOL LACTATE 5 MG/ML VIAL IM ONE (08:15)
[2019-11-08] MEDS ORDERED: DiphenhydrAMINE HCL 50 MG/ML VIAL IM ONE (08:15)
[2019-11-08] MEDS ORDERED: LORazepam 2 MG/ML VIAL IM ONE (08:15)
[2019-11-08] MEDS ORDERED: RisperiDONE 1 MG TABLET PO ONE (08:30)
[2019-11-08] MEDS ORDERED: LORazepam 1 MG TABLET PO ONE (08:30)
[2019-11-08] MEDS ORDERED: HALOPERIDOL 5 MG TABLET PO PRN (09:45)
[2019-11-08] MEDS ORDERED: ZOLPIDEM TARTRATE 10 MG TABLET PO PRN (09:45)
[2019-11-08] MEDS ORDERED: LORazepam 2 MG TABLET PO PRN (09:45)
[2019-11-08 11:08] VITALS: BP 110/65
[2019-11-08 16:02] VITALS: BP 118/74
[2019-11-08] MEDS: RisperiDONE 1 MG TABLET PO SCH (17:00)
[2019-11-09 05:20] VITALS: BP 114/68
[2019-11-09] MEDS ORDERED: ACETAMINOPHEN 325 MG TABLET PO PRN (07:00)
[2019-11-09] MEDS ORDERED: CloNIDine HCL 0.1 MG TABLET PO PRN (07:00)
[2019-11-09] MEDS ORDERED: MAG HYDROX/AL HYDROX/SIMETH ES 30 ML SUSPENSION UDCUP PO PRN (07:00)
[2019-11-09] MEDS ORDERED: IBUPROFEN 600 MG TABLET PO PRN (07:00)
[2019-11-09] MEDS ORDERED: BACITRACIN 28.4 GM OINTMENT TP PRN (07:00)
[2019-11-09] MEDS ORDERED: LOPERAMIDE HCL 2 MG CAPSULE PO PRN (07:00)
[2019-11-09] MEDS ORDERED: MAGNESIUM HYDROXIDE SUSPENSION 30 ML UDCUP PO PRN (07:00)
[2019-11-09] MEDS ORDERED: BENZOCAINE/MENTHOL LOZENGE PO PRN (07:00)
[2019-11-09] MEDS ORDERED: PETROLATUM,WHITE 28 GM JELLY TP PRN (07:00)
[2019-11-09] MEDS ORDERED: ONDANSETRON HCL 4 MG TABLET PO PRN (07:00)
[2019-11-09] MEDS ORDERED: OMEPRAZOLE 20 MG CAPSULE PO PRN (07:00)
[2019-11-09] MEDS ORDERED: DOCUSATE SODIUM 100 MG CAPSULE PO PRN (07:00)
[2019-11-09] MEDS ORDERED: ALBUTEROL SULFATE HFA 90 MCG/PUFF 8 GM INHALER IH PRN (07:00)
[2019-11-09] MEDS: RisperiDONE 1 MG TABLET PO SCH ×2 (08:36→16:48)
[2019-11-09] MEDS: FLUoxetine HCL 20 MG CAPSULE PO SCH (13:05)
[2019-11-09 14:22] VITALS: BP 125/76
[2019-11-09 16:31] VITALS: BP 117/69
[2019-11-10 06:06] VITALS: BP 116/73
[2019-11-10] MEDS: RisperiDONE 1 MG TABLET PO SCH ×2 (08:16→16:53)
[2019-11-10] MEDS: FLUoxetine HCL 20 MG CAPSULE PO SCH (08:16)
[2019-11-10 08:26] VITALS: BP 126/78
[2019-11-10 16:04] VITALS: BP 111/66
[2019-11-11 05:56] VITALS: BP 124/70
[2019-11-11] MEDS: FLUoxetine HCL 20 MG CAPSULE PO SCH (08:15)
[2019-11-11] MEDS: RisperiDONE 1 MG TABLET PO SCH (08:15)
[2019-11-11 08:40] VITALS: BP 131/78
[2019-11-11] MEDS ORDERED: FLUO-191 PO (14:21)
== END 2019-11-11 15:34 | disposition home or self-care (01) | DRG 750 ==
LOC: EMS 07:27 → B3A 09:30
PROVIDERS: ADMIT Psychiatry & Neurology Psychiatry; ATTEND Psychiatry & Neurology Psychiatry
DX: F25.1 Schizoaffective disorder, depressive type (principal); F17.210 Nicotine dependence, cigarettes, uncomplicated; F14.90 Cocaine use, unspecified, uncomplicated; K59.00 Constipation, unspecified; G47.00 Insomnia, unspecified; F41.9 Anxiety disorder, unspecified; F12.90 Cannabis use, unspecified, uncomplicated; G40.909 Epilepsy, unspecified, not intractable, without status epilepticus
CPT/HCPCS: 87081; G0480; J1200; J1630; J2060

== ENCOUNTER 2020-01-06 19:05 | Inpatient (IN) | payer MEDICAID, OTHER ==
[~2020-01-06] VITALS: Ht 170.2 cm; Wt 60.1 kg
[~2020-01-06 19:05] MED LIST changes: +FLUO-191 PO
[2020-01-06 21:45] LABS: COVID AG,FIA SOURCE NASOPHARYNGEAL
[2020-01-06 21:48] LABS: BASOPHILS % (AUTO) 0.7 % (0.0-2.0); EOSINOPHILS % (AUTO) 1.7 % (1.0-6.0); HEMATOCRIT 41.3 % (41-53); HEMOGLOBIN 14.4 g/dL (13.5-17.5); LYMPHOCYTES # (AUTO) 2.2 K/uL (1.0-4.8); LYMPHOCYTES % (AUTO) 27.6 % (22.0-44.0); MEAN CORPUSCULAR HEMOGLOBIN 32.3 pg (26.0-34.0); MEAN CORPUSCULAR VOLUME 92 fL (80-100); MONOCYTES # (AUTO) 0.7 K/uL (0.1-1.0); MONOCYTES % (AUTO) 9.1 % (2.0-9.0); NEUTROPHILS # (AUTO) 4.9 K/uL (1.8-7.7); NEUTROPHILS % (AUTO) 60.9 % (40.0-70.0); PLATELET COUNT (AUTO) 286 K/uL (150-450); RED BLOOD CELL COUNT(AUTO) 4.47 MIL/uL (4.50-5.90); RED CELL DISTRIBUTION WIDTH 13.6 % (11.5-14.5)
[2020-01-06] MEDS ORDERED: ZOLPIDEM TARTRATE 10 MG TABLET PO PRN (22:00)
[2020-01-06] MEDS ORDERED: HALOPERIDOL 5 MG TABLET PO PRN (22:00)
[2020-01-06] MEDS ORDERED: LORazepam 2 MG TABLET PO PRN (22:00)
[2020-01-06 22:03] LABS: ALANINE AMINOTRANSFERASE 107 U/L (12-78); ALKALINE PHOSPHATASE 112 U/L (46-116); ANION GAP 8 mmol/L (8-16); ASPARTATE AMINOTRANSFERASE 67 U/L (15-37); BILIRUBIN,TOTAL 0.6 mg/dL (0.1-1.0); CALCIUM, TOTAL 9.1 mg/dL (8.8-10.5); CARBON DIOXIDE 31 mmol/L (22-29); CHLORIDE 103 mmol/L (98-107); CREATININE 1.21 mg/dL (0.60-1.30); GLOMERULAR FILTR. RATE CALC > 60 mL/min (>60); GLUCOSE,RANDOM 138 mg/dL (70-110); SODIUM SERUM 142 mmol/L (136-145); TOTAL PROTEIN, SERUM 6.7 g/dL (6.4-8.2); UREA NITROGEN, BLOOD 23 mg/dL (7-18)
[2020-01-06] MEDS ORDERED: POTASSIUM CHLORIDE 20 MEQ ER TABLET PO ONE (23:15)
[2020-01-07 01:44] VITALS: BP 122/80
[2020-01-07] MEDS ORDERED: INFLUENZA VIRUS VACCINE QVS 2020-21 (6MO+)/PF 60 MCG/0.5 ML SYRINGE IM ONE (05:30)
[2020-01-07 07:03] LABS: CHOL/HDL RATIO 2.5 (4.2-7.3)
[2020-01-07] MEDS ORDERED: CloNIDine HCL 0.1 MG TABLET PO PRN (08:00)
[2020-01-07] MEDS ORDERED: MAG HYDROX/AL HYDROX/SIMETH ES 30 ML SUSPENSION UDCUP PO PRN (08:00)
[2020-01-07] MEDS ORDERED: GuaiFENesin/D-METHORPHAN [SUGAR-FREE] 200-20MG/10 ML SYRUP UDCUP PO PRN (08:00)
[2020-01-07] MEDS ORDERED: LOPERAMIDE HCL 2 MG CAPSULE PO PRN (08:00)
[2020-01-07] MEDS ORDERED: ONDANSETRON HCL 4 MG TABLET PO PRN (08:00)
[2020-01-07] MEDS ORDERED: NICOTINE 14 MG/24 HOUR PATCH TD PRN (08:00)
[2020-01-07] MEDS ORDERED: PETROLATUM,WHITE 28 GM JELLY TP PRN (08:00)
[2020-01-07] MEDS ORDERED: DOCUSATE SODIUM 100 MG CAPSULE PO PRN (08:00)
[2020-01-07] MEDS ORDERED: ALBUTEROL SULFATE HFA 90 MCG/PUFF 8 GM INHALER IH PRN (08:00)
[2020-01-07] MEDS ORDERED: ACETAMINOPHEN 325 MG TABLET PO PRN (08:00)
[2020-01-07] MEDS ORDERED: MAGNESIUM HYDROXIDE SUSPENSION 30 ML UDCUP PO PRN (08:00)
[2020-01-07] MEDS ORDERED: IBUPROFEN 400 MG TABLET PO PRN (08:00)
[2020-01-07 08:49] LABS: POTASSIUM 4.1 mmol/L (3.5-5.1)
[2020-01-07 09:56] VITALS: BP 134/94
[2020-01-07 16:00] VITALS: BP 115/60
[2020-01-07] MEDS: RisperiDONE 1 MG TABLET PO SCH (16:43)
[2020-01-08] MEDS: RisperiDONE 1 MG TABLET PO SCH ×2 (09:07→16:42)
[2020-01-08] MEDS: FLUoxetine HCL 20 MG CAPSULE PO SCH (09:07)
[2020-01-08 09:37] VITALS: BP 132/80
[2020-01-08 16:00] VITALS: BP 117/67
[2020-01-09] MEDS: FLUoxetine HCL 20 MG CAPSULE PO SCH (09:02)
[2020-01-09] MEDS: RisperiDONE 1 MG TABLET PO SCH (09:02)
== END 2020-01-09 16:30 | disposition home or self-care (01) | DRG 750 ==
LOC: EMS 19:05 → 3EI 21:54
PROVIDERS: ADMIT Psychiatry & Neurology Psychiatry; ATTEND Psychiatry & Neurology Psychiatry
DX: F25.1 Schizoaffective disorder, depressive type (principal); E87.6 Hypokalemia; F94.0 Selective mutism; H91.3 Deaf nonspeaking, not elsewhere classified; R45.850 Homicidal ideations; F17.210 Nicotine dependence, cigarettes, uncomplicated; Z20.828 Contact with and (suspected) exposure to other viral communicable diseases; F19.10 Other psychoactive substance abuse, uncomplicated; F99 Mental disorder, not otherwise specified; R73.9 Hyperglycemia, unspecified; Z79.899 Other long term (current) drug therapy; Z23 Encounter for immunization
CPT/HCPCS: 84132; 87426; G0480

== ENCOUNTER 2020-01-17 14:03 | Inpatient (IN) | payer MEDICAID ==
[~2020-01-17] VITALS: Ht 170.2 cm; Wt 64.1 kg
[2020-01-17] MEDS ORDERED: LORazepam 2 MG TABLET PO PRN (18:00)
[2020-01-17] MEDS ORDERED: HALOPERIDOL 5 MG TABLET PO PRN (18:00)
[2020-01-17] MEDS ORDERED: ZOLPIDEM TARTRATE 10 MG TABLET PO PRN (18:00)
[2020-01-17] MEDS ORDERED: INFLUENZA VIRUS VACCINE QVS 2020-21 (6MO+)/PF 60 MCG/0.5 ML SYRINGE IM ONE (18:45)
[2020-01-17 18:53] VITALS: BP 132/90
[2020-01-18 06:42] VITALS: BP 138/81
[2020-01-18] MEDS ORDERED: ALBUTEROL SULFATE HFA 90 MCG/PUFF 8 GM INHALER IH PRN (06:45)
[2020-01-18] MEDS ORDERED: DOCUSATE SODIUM 100 MG CAPSULE PO PRN (06:45)
[2020-01-18] MEDS ORDERED: CloNIDine HCL 0.1 MG TABLET PO PRN (06:45)
[2020-01-18] MEDS ORDERED: MAGNESIUM HYDROXIDE SUSPENSION 30 ML UDCUP PO PRN (06:45)
[2020-01-18] MEDS ORDERED: NICOTINE 14 MG/24 HOUR PATCH TD PRN (06:45)
[2020-01-18] MEDS ORDERED: PETROLATUM,WHITE 28 GM JELLY TP PRN (06:45)
[2020-01-18] MEDS ORDERED: ONDANSETRON HCL 4 MG TABLET PO PRN (06:45)
[2020-01-18] MEDS ORDERED: GuaiFENesin/D-METHORPHAN [SUGAR-FREE] 200-20MG/10 ML SYRUP UDCUP PO PRN (06:45)
[2020-01-18] MEDS ORDERED: LOPERAMIDE HCL 2 MG CAPSULE PO PRN (06:45)
[2020-01-18] MEDS ORDERED: MAG HYDROX/AL HYDROX/SIMETH ES 30 ML SUSPENSION UDCUP PO PRN (06:45)
[2020-01-18 07:38] LABS: BASOPHILS % (AUTO) 0.5 % (0.0-2.0); EOSINOPHILS % (AUTO) 2.7 % (1.0-6.0); HEMATOCRIT 45.1 % (41-53); LYMPHOCYTES # (AUTO) 1.4 K/uL (1.0-4.8); MEAN CORPUSCULAR HEMOGLOBIN 31.5 pg (26.0-34.0); MEAN CORPUSCULAR HGB CONC 33.3 G/dL (31.0-37.0); MEAN CORPUSCULAR VOLUME 95 fL (80-100); MONOCYTES # (AUTO) 0.3 K/uL (0.1-1.0); NEUTROPHILS # (AUTO) 3.1 K/uL (1.8-7.7); NEUTROPHILS % (AUTO) 61.8 % (40.0-70.0); PLATELET COUNT (AUTO) 232 K/uL (150-450); RED BLOOD CELL COUNT(AUTO) 4.77 MIL/uL (4.50-5.90); RED CELL DISTRIBUTION WIDTH 13.9 % (11.5-14.5)
[2020-01-18 07:56] LABS: ALANINE AMINOTRANSFERASE 41 U/L (12-78); ALBUMIN 3.5 g/dL (3.4-5.0); ALKALINE PHOSPHATASE 87 U/L (46-116); ANION GAP 6 mmol/L (8-16); ASPARTATE AMINOTRANSFERASE 19 U/L (15-37); BILIRUBIN,TOTAL 0.2 mg/dL (0.1-1.0); CALCIUM, TOTAL 8.8 mg/dL (8.8-10.5); CARBON DIOXIDE 26 mmol/L (22-29); CHLORIDE 106 mmol/L (98-107); CHOL/HDL RATIO 2.5 (4.2-7.3); CHOLESTEROL 157 mg/dL (131-200); CREATININE 0.74 mg/dL (0.60-1.30); FREE T4 (FREE THYROXINE) 0.94 ng/dL (0.76-1.46); GLOMERULAR FILTR. RATE CALC > 60 mL/min (>60); GLUCOSE,RANDOM 110 mg/dL (70-110); HDL CHOLESTEROL 64 mg/dL (40-60); LDL CHOL (CALC.) 79 mg/dL (0-130); POTASSIUM 4.1 mmol/L (3.5-5.1); SODIUM SERUM 138 mmol/L (136-145); THYROID STIMULATING HORMONE 1.46 uIU/mL (0.36-3.74); TOTAL PROTEIN, SERUM 6.2 g/dL (6.4-8.2); TRIGLYCERIDES 72 mg/dL (15-150); UREA NITROGEN, BLOOD 16 mg/dL (7-18)
[2020-01-18 09:15] VITALS: BP 122/80
[2020-01-18] MEDS: SULFAMETHOX/TRIMETH DS 800-160 MG/TABLET PO SCH (16:08)
[2020-01-18] MEDS: RisperiDONE 2 MG TABLET PO SCH (16:08)
[2020-01-18] MEDS: CEPHALEXIN MONOHYDRATE 500 MG CAPSULE PO SCH (16:08)
[2020-01-18 16:22] VITALS: BP 132/89
[2020-01-18] MEDS: ACETAMINOPHEN 325 MG TABLET PO PRN (18:38)
[2020-01-19 05:55] VITALS: BP 126/64
[2020-01-19] MEDS: SULFAMETHOX/TRIMETH DS 800-160 MG/TABLET PO SCH ×2 (08:29→17:18)
[2020-01-19] MEDS: CEPHALEXIN MONOHYDRATE 500 MG CAPSULE PO SCH ×3 (08:29→17:18)
[2020-01-19] MEDS: FLUoxetine HCL 20 MG CAPSULE PO SCH (08:29)
[2020-01-19] MEDS: RisperiDONE 2 MG TABLET PO SCH ×2 (08:29→17:18)
[2020-01-19 10:07] VITALS: BP 112/62
[2020-01-19 17:57] VITALS: BP 138/74
[2020-01-20 00:55] VITALS: BP 125/72
[2020-01-20 08:01] LABS: APPEARANCE,URINE CLEAR (CLEAR); BILIRUBIN,URINE NEGATIVE (NEGATIVE); GLUCOSE, URINE (UA) NEGATIVE (NEGATIVE); KETONES,URINE NEGATIVE (NEGATIVE); LEUKOCYTE ESTERASE ,URINE NEGATIVE (NEGATIVE); NITRATE,URINE NEGATIVE (NEGATIVE); OCCULT BLOOD,URINE NEGATIVE (NEGATIVE); PH,URINE 6.5 (5.0-8.0); PROTEIN,URINE NEGATIVE (NEGATIVE); UROBILINOGEN,URINE 0.2 mg/dL (<=1.0)
[2020-01-20 08:13] LABS: AMPHET/METH SCREEN,URINE POSITIVE (NEGATIVE); BARBITURATE SCREEN, URINE NEGATIVE (NEGATIVE); BENZODIAZEPINES SCREEN,URINE NEGATIVE (NEGATIVE); CANNABINOID SCREEN,URINE NEGATIVE (NEGATIVE); COCAINE SCREEN,URINE NEGATIVE (NEGATIVE); METHADONE SCREEN, URINE NEGATIVE (NEGATIVE); OPIATE SCREEN,URINE NEGATIVE (NEGATIVE)
[2020-01-20 08:15] LABS: PHENCYCLIDINE SCREEN,URINE NEGATIVE (NEGATIVE)
[2020-01-20] MEDS: FLUoxetine HCL 20 MG CAPSULE PO SCH (08:17)
[2020-01-20] MEDS: CEPHALEXIN MONOHYDRATE 500 MG CAPSULE PO SCH ×3 (08:17→16:27)
[2020-01-20] MEDS: SULFAMETHOX/TRIMETH DS 800-160 MG/TABLET PO SCH ×2 (08:17→16:27)
[2020-01-20] MEDS: RisperiDONE 2 MG TABLET PO SCH ×2 (08:17→16:27)
[2020-01-20 08:43] VITALS: BP 138/99
[2020-01-20] MEDS ORDERED: CloNIDine HCL 0.1 MG TABLET PO PRN (13:45)
[2020-01-20] MEDS ORDERED: LORazepam 1 MG TABLET PO PRN (13:45)
[2020-01-20 16:26] VITALS: BP 129/65
[2020-01-21 01:42] VITALS: BP 140/76
[2020-01-21] MEDS: SULFAMETHOX/TRIMETH DS 800-160 MG/TABLET PO SCH ×2 (08:40→16:20)
[2020-01-21] MEDS: CEPHALEXIN MONOHYDRATE 500 MG CAPSULE PO SCH ×3 (08:40→16:20)
[2020-01-21] MEDS: RisperiDONE 2 MG TABLET PO SCH ×2 (08:40→16:20)
[2020-01-21] MEDS: FLUoxetine HCL 20 MG CAPSULE PO SCH (08:40)
[2020-01-21 09:08] VITALS: BP 104/65
[2020-01-21 16:11] VITALS: BP 123/61
[2020-01-21] MEDS: IBUPROFEN 400 MG TABLET PO PRN (16:42)
[2020-01-22 01:03] VITALS: BP 132/68
[2020-01-22 08:15] VITALS: BP 111/58
[2020-01-22] MEDS: FLUoxetine HCL 20 MG CAPSULE PO SCH (08:15)
[2020-01-22] MEDS: SULFAMETHOX/TRIMETH DS 800-160 MG/TABLET PO SCH ×2 (08:15→16:15)
[2020-01-22] MEDS: CEPHALEXIN MONOHYDRATE 500 MG CAPSULE PO SCH ×3 (08:16→16:15)
[2020-01-22] MEDS: RisperiDONE 2 MG TABLET PO SCH ×2 (08:16→16:15)
[2020-01-22 16:15] VITALS: BP 110/60
[2020-01-22] MEDS: IBUPROFEN 400 MG TABLET PO PRN (23:42)
[2020-01-23 01:21] VITALS: BP 121/91
[2020-01-23 08:07] VITALS: BP 122/60
[2020-01-23] MEDS: SULFAMETHOX/TRIMETH DS 800-160 MG/TABLET PO SCH ×2 (08:19→17:07)
[2020-01-23] MEDS: IBUPROFEN 400 MG TABLET PO PRN ×2 (08:19→22:47)
[2020-01-23] MEDS: CEPHALEXIN MONOHYDRATE 500 MG CAPSULE PO SCH ×3 (08:19→17:07)
[2020-01-23] MEDS: RisperiDONE 2 MG TABLET PO SCH (08:19)
[2020-01-23] MEDS: FLUoxetine HCL 20 MG CAPSULE PO SCH (08:19)
[2020-01-23] MEDS: ACETAMINOPHEN 325 MG TABLET PO PRN (14:26)
[2020-01-23 16:06] VITALS: BP 105/66
[2020-01-23] MEDS: RisperiDONE 3 MG TABLET PO SCH (17:07)
[2020-01-24 00:21] VITALS: BP 143/83
[2020-01-24 08:10] VITALS: BP 110/59
[2020-01-24] MEDS: RisperiDONE 3 MG TABLET PO SCH ×2 (08:10→16:20)
[2020-01-24] MEDS: FLUoxetine HCL 20 MG CAPSULE PO SCH (08:10)
[2020-01-24] MEDS: CEPHALEXIN MONOHYDRATE 500 MG CAPSULE PO SCH ×3 (08:10→16:20)
[2020-01-24] MEDS: SULFAMETHOX/TRIMETH DS 800-160 MG/TABLET PO SCH ×2 (08:10→16:20)
[2020-01-24] MEDS: ACETAMINOPHEN 325 MG TABLET PO PRN (12:22)
[2020-01-24 16:26] VITALS: BP 123/60
[2020-01-24] MEDS: IBUPROFEN 400 MG TABLET PO PRN (17:17)
[2020-01-25 07:02] VITALS: BP 128/68
[2020-01-25] MEDS: FLUoxetine HCL 20 MG CAPSULE PO SCH (08:22)
[2020-01-25] MEDS: SULFAMETHOX/TRIMETH DS 800-160 MG/TABLET PO SCH ×2 (08:22→16:53)
[2020-01-25] MEDS: RisperiDONE 3 MG TABLET PO SCH ×2 (08:22→16:53)
[2020-01-25] MEDS: CEPHALEXIN MONOHYDRATE 500 MG CAPSULE PO SCH ×3 (08:22→16:53)
[2020-01-25 08:57] VITALS: BP 106/60
[2020-01-25 16:25] VITALS: BP 132/82
[2020-01-25] MEDS: ACETAMINOPHEN 325 MG TABLET PO PRN (17:47)
[2020-01-25] MEDS: IBUPROFEN 400 MG TABLET PO PRN (19:38)
[2020-01-26 03:36] VITALS: BP 116/65
[2020-01-26] MEDS: FLUoxetine HCL 20 MG CAPSULE PO SCH (08:24)
[2020-01-26] MEDS: RisperiDONE 3 MG TABLET PO SCH ×2 (08:25→16:08)
[2020-01-26 08:47] VITALS: BP 116/68
[2020-01-26] MEDS ORDERED: BACTDSB PO (14:34)
[2020-01-26] MEDS ORDERED: ARIP15TA2 PO (14:34)
[2020-01-26 16:10] VITALS: BP 130/70
[2020-01-27 00:19] VITALS: BP 115/61
[2020-01-27 08:38] VITALS: BP 133/66
[2020-01-27] MEDS: FLUoxetine HCL 20 MG CAPSULE PO SCH (08:47)
[2020-01-27] MEDS: RisperiDONE 3 MG TABLET PO SCH ×2 (08:47→16:31)
[2020-01-27] MEDS: ACETAMINOPHEN 325 MG TABLET PO PRN (09:21)
[2020-01-27] MEDS: IBUPROFEN 400 MG TABLET PO PRN (12:53)
[2020-01-27 16:15] VITALS: BP 111/72
[2020-01-28 06:38] VITALS: BP 129/66
[2020-01-28 08:33] VITALS: BP 123/74
[2020-01-28] MEDS: FLUoxetine HCL 20 MG CAPSULE PO SCH (08:56)
[2020-01-28] MEDS: RisperiDONE 3 MG TABLET PO SCH ×2 (08:56→16:07)
[2020-01-28] MEDS: ACETAMINOPHEN 325 MG TABLET PO PRN (09:03)
[2020-01-28] MEDS: BENZOCAINE 20% 11.9 GM GEL TP PRN (16:07)
[2020-01-28] MEDS: IBUPROFEN 400 MG TABLET PO PRN (16:07)
[2020-01-28 16:54] VITALS: BP 118/67
[2020-01-29 00:21] VITALS: BP 115/62
[2020-01-29] MEDS: RisperiDONE 3 MG TABLET PO SCH ×2 (08:04→16:08)
[2020-01-29] MEDS: FLUoxetine HCL 20 MG CAPSULE PO SCH (08:04)
[2020-01-29 08:23] VITALS: BP 109/69
[2020-01-29] MEDS: ACETAMINOPHEN 325 MG TABLET PO PRN (12:47)
[2020-01-29] MEDS: BENZOCAINE 20% 11.9 GM GEL TP PRN (14:44)
[2020-01-29 16:10] VITALS: BP 123/75
[2020-01-30 00:32] VITALS: BP 120/64
[2020-01-30] MEDS: RisperiDONE 3 MG TABLET PO SCH ×2 (08:32→16:00)
[2020-01-30] MEDS: FLUoxetine HCL 20 MG CAPSULE PO SCH (08:32)
[2020-01-30 08:36] VITALS: BP 106/62
[2020-01-30] MEDS: IBUPROFEN 400 MG TABLET PO PRN (16:00)
[2020-01-30 16:06] VITALS: BP 124/74
[2020-01-30] MEDS: BENZOCAINE 20% 11.9 GM GEL TP PRN (16:08)
[2020-01-31 01:00] VITALS: BP 116/62
[2020-01-31 08:16] VITALS: BP 140/78
[2020-01-31] MEDS: FLUoxetine HCL 20 MG CAPSULE PO SCH (08:53)
[2020-01-31] MEDS: RisperiDONE 3 MG TABLET PO SCH ×2 (08:54→16:44)
[2020-01-31] MEDS: IBUPROFEN 400 MG TABLET PO PRN (10:06)
[2020-01-31] MEDS: ACETAMINOPHEN 325 MG TABLET PO PRN ×2 (13:19→21:39)
[2020-01-31 16:34] VITALS: BP 135/85
[2020-02-01 06:59] VITALS: BP 132/84
[2020-02-01 08:07] VITALS: BP 123/68
[2020-02-01] MEDS: RisperiDONE 3 MG TABLET PO SCH ×2 (08:25→16:36)
[2020-02-01] MEDS: FLUoxetine HCL 20 MG CAPSULE PO SCH (08:25)
[2020-02-01 16:10] VITALS: BP 116/70
[2020-02-01] MEDS ORDERED: RISP3TAB35 PO (16:21)
[2020-02-01] MEDS ORDERED: FLUO-191 PO (16:21)
== END 2020-02-01 17:30 | disposition home or self-care (01) | DRG 750 ==
LOC: B2S 17:52
PROVIDERS: ADMIT Psychiatry & Neurology Psychiatry; ATTEND Psychiatry & Neurology Psychiatry
DX: F20.0 Paranoid schizophrenia (principal); Z91.5 Personal history of self-harm; G40.909 Epilepsy, unspecified, not intractable, without status epilepticus; E44.0 Moderate protein-calorie malnutrition; Z68.22 Body mass index [BMI] 22.0-22.9, adult; H91.3 Deaf nonspeaking, not elsewhere classified; Z23 Encounter for immunization
CPT/HCPCS: 80307; 83036; 84439; 84443; 87081; 90686

== ENCOUNTER 2020-01-19 11:56 | Emergency (ER) | payer MEDICAID, OTHER ==
[~2020-01-19] VITALS: Ht 175.3 cm; Wt 72.7 kg
[2020-01-19 15:30] VITALS: BP 132/79
== END 2020-01-19 17:09 | disposition home or self-care (01) ==
LOC: EMS 11:56
DX: S43.102A Unspecified dislocation of left acromioclavicular joint, initial encounter (principal); F20.9 Schizophrenia, unspecified; F17.210 Nicotine dependence, cigarettes, uncomplicated; F14.90 Cocaine use, unspecified, uncomplicated; F12.90 Cannabis use, unspecified, uncomplicated; F19.90 Other psychoactive substance use, unspecified, uncomplicated; X58.XXXA Exposure to other specified factors, initial encounter; Y93.89 Activity, other specified; Y92.89 Other specified places as the place of occurrence of the external cause; Y99.8 Other external cause status

== ENCOUNTER 2021-10-13 04:27 | Inpatient (IN) | payer MEDICAID, OTHER ==
[~2021-10-13] VITALS: Ht 175.3 cm; Wt 72.0 kg
[~2021-10-13 04:27] MED LIST changes: +ACET-2247 PO; +ASCO500 PO; +CEFA2PIG IV; +FLUO-177 PO; -FLUO-191 PO; +OXYC-490 PO; -RISP1TAB89 PO; +RISP3TAB35 PO
[2021-10-13 05:39] LABS: BASOPHILS % (AUTO) 0.4 % (0.0-2.0); EOSINOPHILS % (AUTO) 0 % (1.0-6.0); LYMPHOCYTES # (AUTO) 1.7 K/uL (1.0-4.8); LYMPHOCYTES % (AUTO) 10.3 % (22.0-44.0); MEAN CORPUSCULAR HEMOGLOBIN 30.4 pg (26.0-34.0); MEAN CORPUSCULAR HGB CONC 34.2 G/dL (31.0-37.0); MEAN CORPUSCULAR VOLUME 89 fL (80-100); MONOCYTES # (AUTO) 1.9 K/uL (0.1-1.0); MONOCYTES % (AUTO) 11.4 % (2.0-9.0); NEUTROPHILS # (AUTO) 13.2 K/uL (1.8-7.7); NEUTROPHILS % (AUTO) 77.9 % (40.0-70.0); PLATELET COUNT (AUTO) 345 K/uL (150-450); RED BLOOD CELL COUNT(AUTO) 5.28 MIL/uL (4.50-5.90); RED CELL DISTRIBUTION WIDTH 14.1 % (11.5-14.5)
[2021-10-13 05:47] LABS: ANION GAP 17 mmol/L (8-16); CALCIUM, TOTAL 9.8 mg/dL (8.8-10.5); CARBON DIOXIDE 25 mmol/L (22-29); CHLORIDE 99 mmol/L (98-107); CREATININE 2.48 mg/dL (0.60-1.30); GLUCOSE,RANDOM 110 mg/dL (70-110); POTASSIUM 3.9 mmol/L (3.5-5.1); SODIUM SERUM 141 mmol/L (136-145); UREA NITROGEN, BLOOD 24 mg/dL (7-18)
[2021-10-13 05:51] LABS: GLOMERULAR FILTR. RATE CALC 31 mL/min (>60)
[2021-10-13 05:53] LABS: ALANINE AMINOTRANSFERASE 78 U/L (12-78); ALBUMIN 4.6 g/dL (3.4-5.0); ALKALINE PHOSPHATASE 159 U/L (46-116); ASPARTATE AMINOTRANSFERASE 68 U/L (15-37); BILIRUBIN,TOTAL 0.9 mg/dL (0.1-1.0); TOTAL PROTEIN, SERUM 9.5 g/dL (6.4-8.2)
[2021-10-13 06:02] LABS: COVID AG,FIA SOURCE NASOPHARYNGEAL
[2021-10-13] MEDS ORDERED: HALOPERIDOL LACTATE 5 MG/ML VIAL IM ONE (08:15)
[2021-10-13] MEDS ORDERED: DiphenhydrAMINE HCL 50 MG/ML VIAL IM ONE (08:15)
[2021-10-13] MEDS ORDERED: DIAZEPAM 5 MG/ML 2 ML SYRINGE IM ONE (08:15)
[2021-10-13 11:55] LABS: AMPHET/METH SCREEN,URINE POSITIVE (NEGATIVE); BARBITURATE SCREEN, URINE NEGATIVE (NEGATIVE); BENZODIAZEPINES SCREEN,URINE NEGATIVE (NEGATIVE); CANNABINOID SCREEN,URINE NEGATIVE (NEGATIVE); COCAINE SCREEN,URINE NEGATIVE (NEGATIVE); METHADONE SCREEN, URINE NEGATIVE (NEGATIVE); OPIATE SCREEN,URINE NEGATIVE (NEGATIVE)
[2021-10-13 11:56] LABS: PHENCYCLIDINE SCREEN,URINE NEGATIVE (NEGATIVE)
[2021-10-13] MEDS ORDERED: ZOLPIDEM TARTRATE 10 MG TABLET PO PRN (12:15)
[2021-10-13] MEDS ORDERED: HALOPERIDOL 5 MG TABLET PO PRN (12:15)
[2021-10-13] MEDS ORDERED: OLANZapine 5 MG RAPDIS TABLET PO PRN (12:15)
[2021-10-13 13:11] LABS: APPEARANCE,URINE HAZY (CLEAR); BILIRUBIN,URINE NEGATIVE (NEGATIVE); GLUCOSE, URINE (UA) TRACE mg/dL (NEGATIVE); LEUKOCYTE ESTERASE ,URINE NEGATIVE (NEGATIVE); NITRATE,URINE NEGATIVE (NEGATIVE); OCCULT BLOOD,URINE MODERATE (NEGATIVE); PH,URINE 5.5 (5.0-8.0); PROTEIN,URINE 100-200,SEE CONFIRM mg/dL (NEGATIVE); SPECIFIC GRAVITIY, URINE 1.032 (1.003-1.030); UROBILINOGEN,URINE <=1.0 mg/dL (<=1.0)
[2021-10-13 13:23] LABS: SULFOSALICYLIC ACID,URINE 2+ (Negative)
[2021-10-13 13:25] LABS: BACTERIA,URINE Moderate /HPF (None Seen)
[2021-10-13 15:04] VITALS: BP 155/99
[2021-10-13 16:45] VITALS: BP 142/86
[2021-10-13] MEDS: RisperiDONE 3 MG TABLET PO SCH (20:20)
[2021-10-14] MEDS: CIPROFLOXACIN HCL 500 MG TABLET PO SCH ×2 (09:24→16:38)
[2021-10-14] MEDS: FLUoxetine HCL 20 MG CAPSULE PO SCH (09:25)
[2021-10-14] MEDS: ATENOLOL 25 MG TABLET PO SCH ×2 (09:25→16:38)
[2021-10-14 16:22] VITALS: BP 125/60
[2021-10-14] MEDS: RisperiDONE 3 MG TABLET PO SCH (20:12)
[2021-10-15 07:30] LABS: BASOPHILS % (AUTO) 0.5 % (0.0-2.0); EOSINOPHILS % (AUTO) 1.5 % (1.0-6.0); HEMATOCRIT 42.4 % (41-53); HEMOGLOBIN 14.3 g/dL (13.5-17.5); LYMPHOCYTES # (AUTO) 1.4 K/uL (1.0-4.8); LYMPHOCYTES % (AUTO) 13.7 % (22.0-44.0); MEAN CORPUSCULAR HEMOGLOBIN 30.6 pg (26.0-34.0); MEAN CORPUSCULAR HGB CONC 33.8 G/dL (31.0-37.0); MEAN CORPUSCULAR VOLUME 91 fL (80-100); MONOCYTES # (AUTO) 1.2 K/uL (0.1-1.0); MONOCYTES % (AUTO) 11.5 % (2.0-9.0); NEUTROPHILS # (AUTO) 7.6 K/uL (1.8-7.7); NEUTROPHILS % (AUTO) 72.8 % (40.0-70.0); PLATELET COUNT (AUTO) 222 K/uL (150-450); RED BLOOD CELL COUNT(AUTO) 4.69 MIL/uL (4.50-5.90); RED CELL DISTRIBUTION WIDTH 14.1 % (11.5-14.5)
[2021-10-15 07:43] LABS: ALANINE AMINOTRANSFERASE 96 U/L (12-78); ALBUMIN 3.3 g/dL (3.4-5.0); ALKALINE PHOSPHATASE 143 U/L (46-116); ANION GAP 7 mmol/L (8-16); ASPARTATE AMINOTRANSFERASE 90 U/L (15-37); BILIRUBIN,TOTAL 0.8 mg/dL (0.1-1.0); CARBON DIOXIDE 28 mmol/L (22-29); CHLORIDE 102 mmol/L (98-107); CREATININE 0.94 mg/dL (0.60-1.30); GLUCOSE,RANDOM 103 mg/dL (70-110); POTASSIUM 4.1 mmol/L (3.5-5.1); SODIUM SERUM 137 mmol/L (136-145); TOTAL PROTEIN, SERUM 7.8 g/dL (6.4-8.2); UREA NITROGEN, BLOOD 8 mg/dL (7-18)
[2021-10-15 07:44] LABS: GLOMERULAR FILTR. RATE CALC > 60 mL/min (>60)
[2021-10-15] MEDS: FLUoxetine HCL 20 MG CAPSULE PO SCH (09:21)
[2021-10-15] MEDS: CIPROFLOXACIN HCL 500 MG TABLET PO SCH ×2 (09:22→16:36)
[2021-10-15] MEDS: ATENOLOL 25 MG TABLET PO SCH ×2 (09:22→16:36)
[2021-10-15 16:20] VITALS: BP 107/54
[2021-10-15] MEDS ORDERED: MAGNESIUM HYDROXIDE SUSPENSION 30 ML UDCUP PO PRN (17:15)
[2021-10-15] MEDS ORDERED: PROMETHAZINE HCL 25 MG TABLET PO PRN (17:15)
[2021-10-15] MEDS ORDERED: MAG HYDROX/AL HYDROX/SIMETH ES 30 ML SUSPENSION UDCUP PO PRN (17:15)
[2021-10-15] MEDS ORDERED: LOPERAMIDE HCL 2 MG CAPSULE PO PRN (17:15)
[2021-10-15] MEDS ORDERED: ACETAMINOPHEN 325 MG TABLET PO PRN (17:15)
[2021-10-15] MEDS ORDERED: TUBERCULIN, PURIFIED PROTEIN DERIVATIVE 5 TU/0.1 ML SYRINGE ID ONE (17:15)
[2021-10-15] MEDS ORDERED: HydrOXYzine PAMOATE 50 MG CAPSULE PO PRN (17:15)
[2021-10-15] MEDS ORDERED: GuaiFENesin/D-METHORPHAN [SUGAR-FREE] 200-20MG/10 ML SYRUP UDCUP PO PRN (17:15)
[2021-10-15] MEDS ORDERED: RisperiDONE 3 MG TABLET PO SCH (21:00)
[2021-10-16 07:51] LABS: CHOL/HDL RATIO 4.3 (4.2-7.3); FREE T4 (FREE THYROXINE) 1.16 ng/dL (0.76-1.46)
[2021-10-16 07:53] LABS: HEMOGLOBIN A1C 5.1 % (3.8-5.6)
[2021-10-16 08:00] VITALS: BP 101/57
[2021-10-16] MEDS: CIPROFLOXACIN HCL 500 MG TABLET PO SCH ×2 (08:48→16:05)
[2021-10-16] MEDS: ATENOLOL 25 MG TABLET PO SCH ×2 (08:48→16:06)
[2021-10-16] MEDS: THIAMINE 100 MG TABLET PO SCH ×2 (08:49→16:06)
[2021-10-16] MEDS: FLUoxetine HCL 20 MG CAPSULE PO SCH (08:49)
[2021-10-16] MEDS ORDERED: MULTIVITAMINS WITH MINERALS, THERAPEUTIC TABLET PO SCH (09:00)
[2021-10-16] MEDS ORDERED: FOLIC ACID 1 MG TABLET PO SCH (09:00)
[2021-10-16 16:00] VITALS: BP 137/91
[2021-10-16] MEDS ORDERED: MELA5TAB40 PO (17:06)
[2021-10-16] MEDS ORDERED: NALT50TA6 PO (17:06)
[2021-10-16] MEDS ORDERED: RISP3TAB63 PO (17:06)
[2021-10-16] MEDS ORDERED: PROZ20 PO (17:06)
[2021-10-16] MEDS ORDERED: OMEG-136 PO (17:06)
[2021-10-16] MEDS ORDERED: CIPR500S4 PO (20:26)
[2021-10-16] MEDS ORDERED: ATEN-187 PO (20:27)
[2021-10-16] MEDS ORDERED: CIPR500T10 PO (20:33)
== END 2021-10-16 20:00 | disposition home or self-care (01) | DRG 750 ==
LOC: EMS 04:28 → 3EI 14:34
PROVIDERS: ADMIT Psychiatry & Neurology Psychiatry; ATTEND Psychiatry & Neurology Psychiatry
DX: F25.0 Schizoaffective disorder, bipolar type (principal); R45.851 Suicidal ideations; Z91.19 Patient's noncompliance with other medical treatment and regimen; Z20.822 Contact with and (suspected) exposure to COVID-19; F17.210 Nicotine dependence, cigarettes, uncomplicated; Z55.9 Problems related to education and literacy, unspecified; Z59.9 Problem related to housing and economic circumstances, unspecified; Z79.899 Other long term (current) drug therapy; Z65.3 Problems related to other legal circumstances; Z63.9 Problem related to primary support group, unspecified
CPT/HCPCS: 80053; 80061; 81001; 81002; 83036; 84439; 84443; 85025; 87086; 99285; G0480; J1200; J1630